=== PATIENT | male | born 1995 | race Caucasian/White ===

== ENCOUNTER 2016-06-30 07:28 | Emergency (ER) | payer MEDICAID, OTHER ==
[~2016-06-30] VITALS: Wt 71.5 kg
[2016-06-30] MEDS ORDERED: PRED20TA PO (07:52)
[2016-06-30] MEDS ORDERED: BEN25 PO (07:53)
[2016-06-30] MEDS ORDERED: MUPI15CR9 TOP (07:53)
[2016-06-30] MEDS ORDERED: DIPHENHYDRAMINE 25 MG CAP PO ONE (08:00)
[2016-06-30] MEDS ORDERED: predniSONE 20 MG TAB PO ONE (08:00)
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
== END 2016-06-30 08:26 | disposition home or self-care (01) ==
LOC: FTE 07:28
DX: R21 Rash and other nonspecific skin eruption (principal)
CPT/HCPCS: J7512; Z7502; Z7610; 99283

== ENCOUNTER 2016-11-01 05:45 | Emergency (ER) | payer MEDICAID ==
[~2016-11-01] VITALS: Ht 177.8 cm; Wt 71.0 kg
[~2016-11-01 05:45] MED LIST: BEN25 PO; MUPI15CR9 TOP; PRED20TA PO
[2016-11-01 05:48] VITALS: Ht 177.8 cm; Wt 71.0 kg
[2016-11-01] MEDS ORDERED: CALAMINE TOP (06:57)
[2016-11-01] MEDS ORDERED: BEN25 PO (06:57)
[2016-11-01] MEDS ORDERED: PRED20TA PO (07:05)
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
== END 2016-11-01 07:30 | disposition home or self-care (01) ==
LOC: FTE 05:45
DX: L23.7 Allergic contact dermatitis due to plants, except food (principal)
CPT/HCPCS: 99283